=== PATIENT | male | born 1990 | race Hispanic/Latino ===

== ENCOUNTER 2022-03-16 17:40 | Inpatient (IN) | payer SELFPAY ==
[2022-03-16] MEDS ORDERED: FAMOTIDINE 20 MG/2 ML INJ IV ONE (20:58)
[2022-03-16] MEDS ORDERED: ONDANSETRON 4 MG/2 ML INJ IV ONE (20:58)
[2022-03-16] MEDS ORDERED: MORPHINE 4 MG/1 ML INJ IV ONE (20:58)
[2022-03-16] MEDS ORDERED: dexAMETHasone 20 MG/5 ML VIAL IV ONE (20:58)
[2022-03-16] MEDS ORDERED: SODIUM CHLORIDE 0.9% 1000 ML 1,000 ML IV ONE (20:59)
[2022-03-16 21:35] LABS: Basophils % (Auto) 0.3 % (0.0-1.8); Eosinophils # (Auto) 0.3 K/mm3 (0.0-0.4); Eosinophils % (Auto) 3.7 % (0.0-4.3); Hematocrit 40.7 % (35.5-45.6); Lymphocytes # (Auto) 1.5 K/mm3 (1.2-5.4); Lymphocytes % (Auto) 21.3 % (13.4-35.0); Mean Corpuscular HGB Conc 35 % (32-34); Mean Corpuscular Volume 81 fl (84-94); Monocytes # (Auto) 0.8 K/mm3 (0.0-0.8); Monocytes % (Auto) 10.9 % (0.0-7.3); Platelet Count 290 K/mm3 (140-440); Red Blood Count 5.01 M/mm3 (3.65-5.03); Red Cell Distribution Width 14.4 % (13.2-15.2)
[2022-03-16 21:40] LABS: Alanine Aminotransferase 31 units/L (7-56); Albumin 4.1 g/dL (3.9-5); BUN/Creatinine Ratio 7; Blood Urea Nitrogen 6 mg/dL (9-20); Calcium 8.6 mg/dL (8.4-10.2); Hemolysis Index 9
--- NOTE | 2022-03-16 21:42 | Emergency Department Report ---
ED General Adult HPI - General Chief complaint: Nausea/Vomiting/Diarrhea Stated complaint: CROHN'S DISEASE Time Seen by Provider: 03/16/22 21:29 Source: patient Mode of arrival: Ambulatory Limitations: No Limitations - History of Present Illness Initial comments: Patient presents with complaints of diarrhea x 3 days (multiple bouts) that is diffusely bloody and with mucus. Endorses nausea, but denies vomiting. . Denies recent travel, known sick contacts, antibiotics, eating out or any unusual or reheated foods. Endorses L sided abdominal pain, sharp/cramping, non radiating, 7/10, not worsened or relieved by anything. Has a hx of Crohn's disease. - Related Data Home Medications Medication Instructions Recorded Confirmed Last Taken No Known Home Medications [No 03/17/22 03/17/22 Unknown Reported Home Medications] Allergies Allergy/AdvReac Type Severity Reaction Status Date / Time No Known Allergies Allergy Verified 03/16/22 17:50 ED Review of Systems ROS: Stated complaint: CROHN'S DISEASE Other details as noted in HPI Comment: All other systems reviewed and negative Constitutional: denies: chills, fever ED Past Medical Hx - Past Medical History Hx Hypertension: Yes Additional medical history: chrons, autism - Medications Home Medications: Home Medications Medication Instructions Recorded Confirmed Last Taken Type No Known Home Medications [No 03/17/22 03/17/22 Unknown History Reported Home Medications] ED Physical Exam - General Limitations: No Limitations General appearance: alert, in no apparent distress - Head Head exam: Present: atraumatic, normocephalic - Eye Eye exam: Present: PERRL, EOMI - ENT ENT exam: Present: mucous membranes moist, other (airway patent) - Neck Neck exam: Present: other (supple; no JVD) - Respiratory Respiratory exam: Present: other (good air entry, nml I:E, CTAB, no use of MEHUL) - Cardiovascular Cardiovascular Exam: Present: regular rate, normal rhythm. Absent: rubs, gallop - GI/Abdominal GI/Abdominal exam: Present: soft, other (tender to palpation in L flank and LLQ; no rebound tenderness or involuntary guarding). Absent: distended - Rectal Rectal exam: Present: other (patient refused. Wants to poop in a container for us to get the sample from there; stool in container grossly bloody; sample collected and sent to lab) - Extremities Exam Extremities exam: Present: full ROM. Absent: tenderness - Back Exam Back exam: Present: full ROM. Absent: CVA tenderness (R), CVA tenderness (L) - Neurological Exam Neurological exam: Present: alert, oriented X3, CN II-XII intact. Absent: motor sensory deficit - Skin Skin exam: Present: warm, normal color ED Course Vital Signs 03/16/22 03/16/22 03/17/22 17:45 21:55 03:07 Temperature 97.3 F L Pulse Rate 103 H Respiratory 18 20 18 Rate Blood Pressure 215/148 Blood Pressure [Right] O2 Sat by Pulse 98 Oximetry 03/17/22 03/17/22 03/17/22 03:37 04:26 04:47 Temperature 97.3 F L 97.5 F L Pulse Rate 103 H 104 H Respiratory 20 18 22 Rate Blood Pressure 180/109 Blood Pressure 159/95 [Right] O2 Sat by Pulse 98 94 Oximetry ED Medical Decision Making - Lab Data Result diagrams: 03/16/22 21:03 03/16/22 21:03 Laboratory Tests 03/16/22 03/16/22 03/16/22 21:03 21:03 23:16 WBC 6.9 RBC 5.01 Hgb 14.0 Hct 40.7 MCV 81 L MCH 28 MCHC 35 H RDW 14.4 Plt Count 290 Lymph % (Auto) 21.3 [place] % (Auto) 10.9 H Eos % (Auto) 3.7 Baso % (Auto) 0.3 Lymph # (Auto) 1.5 [place] # (Auto) 0.8 Eos # (Auto) 0.3 Baso # (Auto) 0.0 Seg Neutrophils % 63.8 Seg Neutrophils # 4.4 Sodium 141 Potassium 3.3 L Chloride 103.3 Carbon Dioxide 26 Anion Gap 15 BUN 6 L Creatinine 0.9 Estimated GFR > 60 BUN/Creatinine Ratio 7 Glucose 98 Calcium 8.6 Total Bilirubin 0.40 AST 16 ALT 31 Alkaline Phosphatase 75 Total Protein 6.6 Albumin 4.1 Albumin/Globulin Ratio 1.6 Lipase 25 Urine Color Straw Urine Turbidity Clear Urine pH 6.0 Ur Specific [place] 1.057 H Urine Protein <15 mg/dl Urine Glucose (UA) Neg Urine Ketones Neg Urine Blood Neg Urine Nitrite Neg Urine Bilirubin Neg Urine Urobilinogen < 2.0 Ur Leukocyte Esterase Neg Urine WBC (Auto) < 1.0 Urine RBC (Auto) < 1.0 U Epithel Cells (Auto) < 1.0 CT abd/pelvis: no acute intra-abdominal abnormality - Medical Decision Making diff dz: likely 2/2 IBD flare. Thrombocytopenia ruled out. Hemodynamically and hematologically stable. Received NS 1L bolus, morphine 4 mg IV x 1, zofran 4 mg IV x 1, solumedrol 125 mg IV x 1, levaquin 750 mg IV x 1, metronidazole 500 mg IV x 1. Critical care attestation.: If time is entered above; I have spent that time in minutes in the direct care of this critically ill patient, excluding procedure time. ED Disposition Clinical Impression: Hematochezia Disposition: ADMITTED INPATIENT Is pt being admited?: Yes Does the pt Need Aspirin: No Condition: Stable Time of Disposition: 23:55 (Patient admitted to Dr. Baker. Sign out was given bby me to the accepting physician)
--- NOTE | 2022-03-16 22:50 | Cat Scan Report ---
CT ABDOMEN AND PELVIS WITH CONTRAST INDICATION / CLINICAL INFORMATION: abdominal pain, hematochezia. TECHNIQUE: Axial CT images were obtained through the abdomen and pelvis after IV contrast. All CT sc ans at this location are performed using CT dose reduction for ALARA by means of automated exposure c ontrol. COMPARISON: None available. FINDINGS: LOWER CHEST: No significant abnormality. LIVER: No significant abnormality. GALLBLADDER: No significant abnormality. PANCREAS: No significant abnormality. SPLEEN: No significant abnormality. ADRENALS: No significant abnormality. RIGHT KIDNEY / URETER: No significant abnormality. LEFT KIDNEY / URETER: No significant abnormality. STOMACH / SMALL BOWEL: No significant abnormality. COLON: No significant abnormality. APPENDIX: No significant abnormality. PERITONEUM: No free fluid, free air or organized collection. LYMPH NODES: No significant adenopathy. AORTA / ARTERIES/ VEINS: No significant abnormality. URINARY BLADDER: No significant abnormality. REPRODUCTIVE ORGANS: No significant abnormality. ADDITIONAL FINDINGS: None. SKELETAL SYSTEM: No significant abnormality. IMPRESSION: 1. No acute abnormality. Signer Name: Nirmal Lobo MD Signed: 03/16/2022 10:45 PM Workstation Name: [id number]
[2022-03-16 23:32] LABS: Bilirubin,Urine NEG (Negative); Blood,Urine NEG (Negative); Color,Urine Straw (Yellow); Protein,Urine <15 mg/dL mg/dL (Negative); Urobilinogen,Urine < 2.0 mg/dL (<2.0); WBC,Urine < 1.0 /HPF (0.0-6.0)
[2022-03-16] MEDS ORDERED: metroNIDAZOLE/NS 500 MG/100 ML 500 MG/100 ML BAG IV ONE (23:45)
[2022-03-16 23:46] LABS: RBC,Urine < 1.0 /HPF (0.0-6.0)
[2022-03-16] MEDS ORDERED: methylPREDNISolone Sod Succinate 125 MG/2 ML INJ IV ONE (23:57)
[2022-03-17] MEDS ORDERED: ACETAMINOPHEN 325 MG TAB PO PRN (01:23)
[2022-03-17] MEDS ORDERED: ALBUTEROL 2.5 MG/3 ML NEBU IH PRN (01:23)
--- NOTE | 2022-03-17 01:29 | History and Physical Report ---
History of Present Illness Date of examination: 03/17/22 Date of admission: 03/17/22 Chief complaint: Nausea vomiting diarrhea Hematochezia History of present illness: 31 years male with history of IBD, Crohn's disease was brought to the emergency room with complaints of diarrhea x 3 days (multiple bouts) that is diffusely bloody and with mucus. Endorses nausea, but denies vomiting. . Denies recent travel, known sick contacts, antibiotics, eating out or any unusual or reheated foods. Endorses L sided abdominal pain, sharp/cramping, non radiating, 7/10, not worsened or relieved by anything. In the emergency room initial CT scan of the abdomen shows no acute abnormality, so we are going to admit the patient we will put the patient on IV fluid Protonix we will consult GI for evaluation Past History Past Medical History: hypertension, other (chrons, autism) Past Surgical History: No surgical history Social history: no significant social history Family history: no significant family history Medications and Allergies Allergies Allergy/AdvReac Type Severity Reaction Status Date / Time No Known Allergies Allergy Verified 03/16/22 17:50 Active Meds: Active Medications Acetaminophen (Acetaminophen 325 Mg Tab) 650 mg PO Q4H PRN PRN Reason: Pain MILD(1-3)/Fever >100.5/PERKINS Albuterol (Albuterol 2.5 Mg/3 Ml Nebu) 2.5 mg IH Q3HRT PRN PRN Reason: Shortness Of Breath Albuterol/Ipratropium (Ipratropium/Albuterol Sulfate 3 Ml Ampul.Neb) 1 ampul IH Q6HRT DEVEN Levofloxacin/Dextrose (Levaquin 750mg/150ml) 750 mg in 150 mls @ 100 mls/hr IV ONCE ONE; Protocol Stop: 03/17/22 01:26 Dextrose/Sodium Chloride (D5/0.45ns) 1,000 mls @ 100 mls/hr IV DIRECT DEVEN Ondansetron HCl (Ondansetron 4 Mg/2 Ml Inj) 4 mg IV Q8H PRN PRN Reason: Nausea And Vomiting Sodium Chloride (Sodium Chloride 0.9% 10 Ml Flush Syringe) 10 ml IV BID DEVEN Sodium Chloride (Sodium Chloride 0.9% 10 Ml Flush Syringe) 10 ml IV PRN PRN PRN Reason: LINE FLUSH Review of Systems All systems: negative Gastrointestinal: abdominal pain, nausea, vomiting, diarrhea, hematochezia Exam - Constitutional Vitals: Temp Pulse Resp BP Pulse Ox 97.3 F L 103 H 20 215/148 98 03/16/22 17:45 03/16/22 17:45 03/16/22 21:55 03/16/22 17:45 03/16/22 17:45 General appearance: Present: no acute distress, well-nourished - EENT Eyes: Present: PERRL ENT: hearing intact, clear oral mucosa - Neck Neck: Present: supple, normal ROM - Respiratory Respiratory effort: normal Respiratory: bilateral: diminished - Cardiovascular Heart Sounds: Present: S1 & S2. Absent: rub, click - Extremities Extremities: pulses symmetrical, No edema Peripheral Pulses: within normal limits - Abdominal General gastrointestinal: Present: soft, non-tender, non-distended, normal bowel sounds Male genitourinary: Present: normal - Integumentary Integumentary: Present: clear, warm, dry - Musculoskeletal Musculoskeletal: gait normal, strength equal bilaterally - Psychiatric Psychiatric: appropriate mood/affect, intact judgment & insight - Neurologic Neurologic: CNII-XII intact, moves all extremities Results - Labs CBC & Chem 7: 03/16/22 21:03 03/16/22 21:03 Labs: Laboratory Last Values WBC 6.9 K/mm3 (4.5-11.0) 03/16/22 21:03 RBC 5.01 M/mm3 (3.65-5.03) 03/16/22 21:03 Hgb 14.0 gm/dl (11.8-15.2) 03/16/22 21:03 Hct 40.7 % (35.5-45.6) 03/16/22 21:03 MCV 81 fl (84-94) L 03/16/22 21:03 MCH 28 pg (28-32) 03/16/22 21:03 MCHC 35 % (32-34) H 03/16/22 21:03 RDW 14.4 % (13.2-15.2) 03/16/22 21:03 Plt Count 290 K/mm3 (140-440) 03/16/22 21:03 Lymph % (Auto) 21.3 % (13.4-35.0) 03/16/22 21:03 [place] % (Auto) 10.9 % (0.0-7.3) H 03/16/22 21:03 Eos % (Auto) 3.7 % (0.0-4.3) 03/16/22 21:03 Baso % (Auto) 0.3 % (0.0-1.8) 03/16/22 21:03 Lymph # (Auto) 1.5 K/mm3 (1.2-5.4) 03/16/22 21:03 [place] # (Auto) 0.8 K/mm3 (0.0-0.8) 03/16/22 21:03 Eos # (Auto) 0.3 K/mm3 (0.0-0.4) 03/16/22 21:03 Baso # (Auto) 0.0 K/mm3 (0.0-0.1) 03/16/22 21:03 Seg Neutrophils % 63.8 % (40.0-70.0) 03/16/22 21:03 Seg Neutrophils # 4.4 K/mm3 (1.8-7.7) 03/16/22 21:03 Sodium 141 mmol/L (137-145) 03/16/22 21:03 Potassium 3.3 mmol/L (3.6-5.0) L 03/16/22 21:03 Chloride 103.3 mmol/L (98-107) 03/16/22 21:03 Carbon Dioxide 26 mmol/L (22-30) 03/16/22 21:03 Anion Gap 15 mmol/L 03/16/22 21:03 BUN 6 mg/dL (9-20) L 03/16/22 21:03 Creatinine 0.9 mg/dL (0.8-1.3) 03/16/22 21:03 Estimated GFR > 60 ml/min 03/16/22 21:03 BUN/Creatinine Ratio 7 % 03/16/22 21:03 Glucose 98 mg/dL (75-100) 03/16/22 21:03 Calcium 8.6 mg/dL (8.4-10.2) 03/16/22 21:03 Total Bilirubin 0.40 mg/dL (0.1-1.2) 03/16/22 21:03 AST 16 units/L (5-40) 03/16/22 21:03 ALT 31 units/L (7-56) 03/16/22 21:03 Alkaline Phosphatase 75 units/L (35-129) 03/16/22 21:03 Total Protein 6.6 g/dL (6.3-8.2) 03/16/22 21:03 Albumin 4.1 g/dL (3.9-5) 03/16/22 21:03 Albumin/Globulin Ratio 1.6 % 03/16/22 21:03 Lipase 25 units/L (13-60) 03/16/22 21:03 Urine Color Straw (Yellow) 03/16/22 23:16 Urine Turbidity Clear (Clear) 03/16/22 23:16 Urine pH 6.0 (5.0-7.0) 03/16/22 23:16 Ur Specific [place] 1.057 (1.003-1.030) H 03/16/22 23:16 Urine Protein <15 mg/dl mg/dL (Negative) 03/16/22 23:16 Urine Glucose (UA) Neg mg/dL (Negative) 03/16/22 23:16 Urine Ketones Neg mg/dL (Negative) 03/16/22 23:16 Urine Blood Neg (Negative) 03/16/22 23:16 Urine Nitrite Neg (Negative) 03/16/22 23:16 Urine Bilirubin Neg (Negative) 03/16/22 23:16 Urine Urobilinogen < 2.0 mg/dL (<2.0) 03/16/22 23:16 Ur Leukocyte Esterase Neg (Negative) 03/16/22 23:16 Urine WBC (Auto) < 1.0 /HPF (0.0-6.0) 03/16/22 23:16 Urine RBC (Auto) < 1.0 /HPF (0.0-6.0) 03/16/22 23:16 U Epithel Cells (Auto) < 1.0 /HPF (0-13.0) 03/16/22 23:16 - Imaging and Cardiology CT scan - abdomen: report reviewed Assessment and Plan VTE prophylaxis?: Mechanical Plan of care discussed with patient/family: Yes - Patient Problems (1) Hematochezia Status: Acute Plan to address problem: Admit the patient to the medical floor. NPO. D5 half-normal saline at the rate of 100 cc/h. Protonix 40 mg IV every 12 hours. Reconsult GI for evaluation. Recheck CBC in the morning (2) Nausea & vomiting Status: Acute Plan to address problem: NPO. D5 half-normal saline at the rate of 100 cc/h. Protonix 40 mg IV every 12 hours. Zofran 4 mg IV every 6 hours as needed (3) Abdominal pain Status: Acute Plan to address problem: NPO. D5 half-normal saline at the rate of 100 cc/h. Protonix 40 mg IV every 12 hours. Morphine 2 mg IV every 4 hours as needed. reconsult GI for evaluation. Recheck CBC in the morning (4) Crohn's disease Status: Acute Plan to address problem: NPO. D5 half-normal saline at the rate of 100 cc/h. Protonix 40 mg IV every 12 hours. Reconsult GI for evaluation. Recheck CBC in the morning (5) DVT prophylaxis Status: Acute Plan to address problem: SCD for DVT prophylaxis. Protonix 40 mg IV every 12 hours for GI prophylaxis. Patient is a full code
[2022-03-17] MEDS: MORPHINE 2 MG/1 ML INJ IV PRN ×3 (03:07→19:28)
[2022-03-17] MEDS: IPRATROPIUM/ALBUTEROL SULFATE 3 ML AMPUL.NEB IH SCH ×4 (04:00→20:19)
[2022-03-17] MEDS: D5W/0.45% NACL 1,000 ML IV SCH ×2 (04:56→17:42)
[2022-03-17] MEDS: HYDROmorphone 1 MG/1 ML INJ IV PRN ×2 (05:22→09:57)
[2022-03-17] MEDS: hydrALAZINE 20 MG/1 ML INJ IV PRN (05:51)
--- NOTE | 2022-03-17 08:09 | Progress Note ---
Assessment and Plan Assessment and plan: 31 years male with history of IBD, Ulcerative colitis was brought to the emergency room with complaints of diarrhea x 3 days (multiple bouts) that is diffusely bloody and with mucus. Endorses nausea, but denies vomiting. . Denies recent travel, known sick contacts, antibiotics, eating out or any unusual or reheated foods. Endorses L sided abdominal pain, sharp/cramping, non radiating, 7/10, not worsened or relieved by anything. Hospital Course: 03/17: D/w patient about his history of IBD. He does not have Crohns, he actually has ulcerative colitis. He was diagnosed in 2007 and his last flare was in 2018. During his last flare he was given prednisone and ascol and improved. He is not currently on maintainence therapy and states that he does not follow with a GI doctor as he recently relocated from [place]. Started patient on mesalamine. Awaiting GI input. Assessment and Plan: #Hematochezia - H/H stable - CT scan of the abdomen shows no acute abnormality - GI consulted #[facility] Flare - initiated on prednisone 40 mg po daily - CT scan of the abdomen shows no acute abnormality - GI consulted #Hypertensive Urgency - labetalol 10 mg IV prn #History of Ulcerative Colitis #Inflammatory bowel disease #Advance care planning Disease education conducted, care plan discussed, diagnoses discussed, prognosis discussed, patient is full code, patient acknowledges understanding and agree with care plan, +30 minutes. History Interval history: Patient resting comfortably on my encounter. He states he is feeling better today. He has not had a bowel movement yet this AM. Hospitalist Physical - Physical exam Narrative exam: Physical Exam: VITAL SIGNS: Reviewed. GENERAL: The patient appears normally developed, Vital signs as documented. HEAD: No signs of head trauma. EYES: Pupils are equal. Extraocular motions intact. EARS: Hearing grossly intact. MOUTH: Oropharynx is normal. NECK: No adenopathy, no JVD. CHEST: Chest with clear breath sounds bilaterally. No wheezes, rales, or rhonchi. CARDIAC: Regular rate and rhythm. S1 and S2, without murmurs, gallops, or rubs. VASCULAR: No Edema. Peripheral pulses normal and equal in all extremities. ABDOMEN: Soft, non tender and non distended. No rebound or guarding, and no masses palpated. Bowel Sounds normal. MUSCULOSKELETAL: Good range of motion of all major joints. Extremities without clubbing, cyanosis or edema. NEUROLOGIC EXAM: Alert and oriented x 4. no focal sensory or strength deficits. PSYCHIATRIC: Mood normal. SKIN: detail exam as documented in skin assessment - Constitutional Vitals: Temp Pulse Resp BP Pulse Ox 97.5 F L 100 H 16 180/109 98 03/17/22 04:47 03/17/22 07:27 03/17/22 07:27 03/17/22 05:51 03/17/22 05:31 General appearance: Present: no acute distress, well-nourished Results - Labs CBC & Chem 7: 03/16/22 21:03 03/16/22 21:03 Labs: Laboratory Last Values WBC 6.9 K/mm3 (4.5-11.0) 03/16/22 21:03 RBC 5.01 M/mm3 (3.65-5.03) 03/16/22 21:03 Hgb 14.0 gm/dl (11.8-15.2) 03/16/22 21:03 Hct 40.7 % (35.5-45.6) 03/16/22 21:03 MCV 81 fl (84-94) L 03/16/22 21:03 MCH 28 pg (28-32) 03/16/22 21:03 MCHC 35 % (32-34) H 03/16/22 21:03 RDW 14.4 % (13.2-15.2) 03/16/22 21:03 Plt Count 290 K/mm3 (140-440) 03/16/22 21:03 Lymph % (Auto) 21.3 % (13.4-35.0) 03/16/22 21:03 [place] % (Auto) 10.9 % (0.0-7.3) H 03/16/22 21:03 Eos % (Auto) 3.7 % (0.0-4.3) 03/16/22 21:03 Baso % (Auto) 0.3 % (0.0-1.8) 03/16/22 21:03 Lymph # (Auto) 1.5 K/mm3 (1.2-5.4) 03/16/22 21:03 [place] # (Auto) 0.8 K/mm3 (0.0-0.8) 03/16/22 21:03 Eos # (Auto) 0.3 K/mm3 (0.0-0.4) 03/16/22 21:03 Baso # (Auto) 0.0 K/mm3 (0.0-0.1) 03/16/22 21:03 Seg Neutrophils % 63.8 % (40.0-70.0) 03/16/22 21:03 Seg Neutrophils # 4.4 K/mm3 (1.8-7.7) 03/16/22 21:03 Sodium 141 mmol/L (137-145) 03/16/22 21:03 Potassium 3.3 mmol/L (3.6-5.0) L 03/16/22 21:03 Chloride 103.3 mmol/L (98-107) 03/16/22 21:03 Carbon Dioxide 26 mmol/L (22-30) 03/16/22 21:03 Anion Gap 15 mmol/L 03/16/22 21:03 BUN 6 mg/dL (9-20) L 03/16/22 21:03 Creatinine 0.9 mg/dL (0.8-1.3) 03/16/22 21:03 Estimated GFR > 60 ml/min 03/16/22 21:03 BUN/Creatinine Ratio 7 % 03/16/22 21:03 Glucose 98 mg/dL (75-100) 03/16/22 21:03 Calcium 8.6 mg/dL (8.4-10.2) 03/16/22 21:03 Total Bilirubin 0.40 mg/dL (0.1-1.2) 03/16/22 21:03 AST 16 units/L (5-40) 03/16/22 21:03 ALT 31 units/L (7-56) 03/16/22 21:03 Alkaline Phosphatase 75 units/L (35-129) 03/16/22 21:03 Total Protein 6.6 g/dL (6.3-8.2) 03/16/22 21:03 Albumin 4.1 g/dL (3.9-5) 03/16/22 21:03 Albumin/Globulin Ratio 1.6 % 03/16/22 21:03 Lipase 25 units/L (13-60) 03/16/22 21:03 Urine Color Straw (Yellow) 03/16/22 23:16 Urine Turbidity Clear (Clear) 03/16/22 23:16 Urine pH 6.0 (5.0-7.0) 03/16/22 23:16 Ur Specific [place] 1.057 (1.003-1.030) H 03/16/22 23:16 Urine Protein <15 mg/dl mg/dL (Negative) 03/16/22 23:16 Urine Glucose (UA) Neg mg/dL (Negative) 03/16/22 23:16 Urine Ketones Neg mg/dL (Negative) 03/16/22 23:16 Urine Blood Neg (Negative) 03/16/22 23:16 Urine Nitrite Neg (Negative) 03/16/22 23:16 Urine Bilirubin Neg (Negative) 03/16/22 23:16 Urine Urobilinogen < 2.0 mg/dL (<2.0) 03/16/22 23:16 Ur Leukocyte Esterase Neg (Negative) 03/16/22 23:16 Urine WBC (Auto) < 1.0 /HPF (0.0-6.0) 03/16/22 23:16 Urine RBC (Auto) < 1.0 /HPF (0.0-6.0) 03/16/22 23:16 U Epithel Cells (Auto) < 1.0 /HPF (0-13.0) 03/16/22 23:16 Microbiology: Microbiology 03/16/22 23:16 Stool Stool Occult Blood (MIGUEL) - Final Estrada/IV: Voiding Method Toilet Active Medications - Current Medications Current Medications: Generic Name Dose Route Start Last Admin Trade Name Freq PRN Reason Stop Dose Admin Acetaminophen 650 mg 03/17/22 01:23 Acetaminophen 325 Mg Tab PO Q4H PRN Pain MILD(1-3)/Fever >100.5/PERKINS Albuterol 2.5 mg 03/17/22 01:23 Albuterol 2.5 Mg/3 Ml Nebu IH Q3HRT PRN Shortness Of Breath Albuterol/Ipratropium 1 ampul 03/17/22 02:00 03/17/22 07:27 Ipratropium/Albuterol Sulfate 3 Ml Ampul.Neb IH 1 ampul Q6HRT DEVEN Administration Hydralazine HCl 10 mg 03/17/22 05:23 03/17/22 05:51 Hydralazine 20 Mg/1 Ml Inj IV 10 mg Q6HR PRN Administration Blood Pressure Hydromorphone HCl 0.5 mg 03/17/22 01:23 03/17/22 05:22 Hydromorphone 1 Mg/1 Ml Inj IV 0.5 mg Q3H PRN Administration Pain , Severe (7-10) Dextrose/Sodium Chloride 1,000 mls @ 100 mls/hr 03/17/22 02:00 03/17/22 04:56 D5/0.45ns IV 100 mls/hr DIRECT DEVEN Administration Morphine Sulfate 2 mg 03/17/22 01:23 03/17/22 03:07 Morphine 2 Mg/1 Ml Inj IV 2 mg Q4H PRN Administration Pain, Moderate (4-6) Ondansetron HCl 4 mg 03/17/22 01:23 Ondansetron 4 Mg/2 Ml Inj IV Q8H PRN Nausea And Vomiting Pantoprazole Sodium 40 mg 03/17/22 10:00 Pantoprazole 40 Mg Inj IV BID DEVEN Sodium Chloride 10 ml 03/17/22 10:00 Sodium Chloride 0.9% 10 Ml Flush Syringe IV BID DEVEN Sodium Chloride 10 ml 03/17/22 01:23 Sodium Chloride 0.9% 10 Ml Flush Syringe IV PRN PRN LINE FLUSH
[2022-03-17] MEDS ORDERED: PANTOPRAZOLE 40 MG INJ IV SCH (10:00)
[2022-03-17] MEDS ORDERED: predniSONE 20 MG TAB PO SCH (10:00)
[2022-03-17] MEDS: ONDANSETRON 4 MG/2 ML INJ IV PRN (13:28)
[2022-03-17] MEDS ORDERED: MESALAMINE 4 GM/60 ML ENEMA PR SCH (14:00)
--- NOTE | 2022-03-17 20:54 | Consultation ---
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 He last had a flare in 2014. He is on no medications for this. He notes that approximately 10 days ago, he ate a shrimp cocktail and subsequently developed diarrhea with up to 5 or 6 bowel movements a day. On day 7, he noted that the diarrhea became blood-tinged. He has had mild nausea and cramping with this. He denies any fevers chills or sweats. Bowel movements usually occur on a twice a day basis. He has had no weight loss. He denies joint aches. Medication reviewed Past History Past Medical History: hypertension, other (Ulcerative colitis, autism, nystagmus) Past Surgical History: No surgical history Social history: no significant social history, , other (Goes back and forth between [place] and [facility]) Family history: no significant family history Medications and Allergies Allergies Allergy/AdvReac Type Severity Reaction Status Date / Time No Known Allergies Allergy Verified 03/16/22 17:50 Home Medications Medication Instructions Recorded Confirmed Last Taken Type No Known Home Medications [No 03/17/22 03/17/22 Unknown History Reported Home Medications] Active Meds: Active Medications Acetaminophen (Acetaminophen 325 Mg Tab) 650 mg PO Q4H PRN PRN Reason: Pain MILD(1-3)/Fever >100.5/PERKINS Albuterol (Albuterol 2.5 Mg/3 Ml Nebu) 2.5 mg IH Q3HRT PRN PRN Reason: Shortness Of Breath Albuterol/Ipratropium (Ipratropium/Albuterol Sulfate 3 Ml Ampul.Neb) 1 ampul IH Q6HRT DEVEN Last Admin: 03/17/22 20:19 Dose: 1 ampul Hydralazine HCl (Hydralazine 20 Mg/1 Ml Inj) 10 mg IV Q6HR PRN PRN Reason: Blood Pressure Last Admin: 03/17/22 05:51 Dose: 10 mg Hydromorphone HCl (Hydromorphone 1 Mg/1 Ml Inj) 0.5 mg IV Q3H PRN PRN Reason: Pain , Severe (7-10) Last Admin: 03/17/22 09:57 Dose: 0.5 mg Dextrose/Sodium Chloride (D5/0.45ns) 1,000 mls @ 100 mls/hr IV DIRECT [facility] Last Admin: 03/17/22 17:42 Dose: 100 mls/hr Labetalol HCl (Labetalol 20 Mg/4 Ml Inj) 10 mg IV Q4HR PRN PRN Reason: sbp> 160 Mesalamine (Mesalamine 4 Gm/60 Ml Enema) 1 gm OK QPM [facility] Last Admin: 03/17/22 13:33 Dose: 1 gm Morphine Sulfate (Morphine 2 Mg/1 Ml Inj) 2 mg IV Q4H PRN PRN Reason: Pain, Moderate (4-6) Last Admin: 03/17/22 13:28 Dose: 2 mg Ondansetron HCl (Ondansetron 4 Mg/2 Ml Inj) 4 mg IV Q8H PRN PRN Reason: Nausea And Vomiting Last Admin: 03/17/22 13:28 Dose: 4 mg Prednisone (Prednisone 20 Mg Tab) 40 mg PO QDAY [facility] Last Admin: 03/17/22 09:19 Dose: 40 mg Sodium Chloride (Sodium Chloride 0.9% 10 Ml Flush Syringe) 10 ml IV BID [facility] Last Admin: 03/17/22 09:20 Dose: 10 ml Sodium Chloride (Sodium Chloride 0.9% 10 Ml Flush Syringe) 10 ml IV PRN PRN PRN Reason: LINE FLUSH Review of Systems All systems: negative (As per HPI) Exam - Constitutional Vitals: Temp Pulse Resp BP Pulse Ox 98.9 F 105 H 18 173/98 96 03/17/22 17:08 03/17/22 20:00 03/17/22 20:00 03/17/22 17:08 03/17/22 20:17 General appearance: Present: no acute distress, obese, other (Has lateral nystagmus while talking) - EENT Eyes: Present: PERRL, EOM intact ENT: hearing intact - Respiratory Respiratory effort: normal Respiratory: bilateral: CTA (Anterior) - Cardiovascular Rhythm: regular Heart Sounds: Present: S1 & S2 - Abdominal General gastrointestinal: Present: soft, non-tender Results - Labs CBC & Chem 7: 03/16/22 21:03 03/16/22 21:03 Labs: Abnormal lab results 03/16/22 03/16/22 03/16/22 Range/Units 21:03 21:03 23:16 MCV 81 L (84-94) fl MCHC 35 H (32-34) % Ev[place]eline % (Auto) 10.9 H (0.0-7.3) % Potassium 3.3 L (3.6-5.0) mmol/L BUN 6 L (9-20) mg/dL Ur Specific [place] 1.057 H (1.003-1.030) - Imaging and Cardiology CT scan - abdomen: report reviewed (Normal, including normal colon) Assessment and Plan 1. Bloody diarrheamost consistent with infectious diarrhea. Patient is feeling remarkably better at present after having gotten fluids and antibiotics and some steroids. I doubt that this is a flare of his ulcerative colitis. I suspect it is more of an infectious diarrhea point, possibly related to the shrimp. Continue antibiotics and stop steroids Advance diet If does well, may discharge to home Follow-up on stool Should follow-up with GI on an outpatient basis to verify the diagnosis of ulcerative colitis by examining records, and probably undergoing a colonoscopy at some point when he is doing well.
[2022-03-18] MEDS: hydrALAZINE 20 MG/1 ML INJ IV PRN ×2 (00:14→05:46)
[2022-03-18] MEDS: MORPHINE 2 MG/1 ML INJ IV PRN ×2 (01:55→13:56)
[2022-03-18] MEDS: ONDANSETRON 4 MG/2 ML INJ IV PRN (01:55)
[2022-03-18] MEDS: D5W/0.45% NACL 1,000 ML IV SCH (01:59)
[2022-03-18] MEDS: IPRATROPIUM/ALBUTEROL SULFATE 3 ML AMPUL.NEB IH SCH (03:01)
[2022-03-18 07:59] LABS: Basophils % (Auto) 0.2 % (0.0-1.8); Eosinophils % (Auto) 0.2 % (0.0-4.3); Hematocrit 45.2 % (35.5-45.6); Hemoglobin 15.2 gm/dl (11.8-15.2); Lymphocytes # (Auto) 1.9 K/mm3 (1.2-5.4); Lymphocytes % (Auto) 20.9 % (13.4-35.0); Mean Corpuscular HGB Conc 34 % (32-34); Mean Corpuscular Volume 82 fl (84-94); Monocytes % (Auto) 10.8 % (0.0-7.3); Platelet Count 354 K/mm3 (140-440); Red Blood Count 5.51 M/mm3 (3.65-5.03); Red Cell Distribution Width 15.1 % (13.2-15.2)
[2022-03-18 08:05] LABS: Alanine Aminotransferase 30 units/L (7-56); Albumin 4.3 g/dL (3.9-5); BUN/Creatinine Ratio 11; Blood Urea Nitrogen 9 mg/dL (9-20); Calcium 9.5 mg/dL (8.4-10.2); Hemolysis Index 8
--- NOTE | 2022-03-18 08:19 | Discharge Summary ---
Providers - Providers Date of Admission: 03/17/22 01:23 Date of discharge: 03/18/22 Attending physician: NESTOR RÍOS MD 03/17/22 00:16 Consult to Physician [CONS] Routine Comment: Dr. Srinivasan spoke with Dr. Ríos @ 0014 Consulting Provider: GHASSAN RÍOS Physician Instructions: Reason For Exam: Hematochezia Primary care physician: ARABELLA MAGUIRE Hospitalization Reason for admission: abdominal pain, hematochezia Condition: Stable Hospital course: 31 years male with history of IBD, Ulcerative colitis was brought to the emergency room with complaints of diarrhea x 3 days (multiple bouts) that is diffusely bloody and with mucus. Endorses nausea, but denies vomiting. . Denies recent travel, known sick contacts, antibiotics, eating out or any unusual or reheated foods. Endorses L sided abdominal pain, sharp/cramping, non radiating, 7/10, not worsened or relieved by anything. Hospital Course: 03/17: D/w patient about his history of IBD. He does not have Crohns, he actually has ulcerative colitis. He was diagnosed in 2007 and his last flare was in 2018. During his last flare he was given prednisone and ascol and improved. He is not currently on maintainence therapy and states that he does not follow with a GI doctor as he recently relocated from [place]. Started patient on mesalamine. Awaiting GI input. 03/18: Discharge home today. will d/c home with flaygl, prednisone, mesalamine rx. Meds transmitted to pharmacy. Advised to establish with OP GI. Assessment and Plan: #Hematochezia - H/H stable - CT scan of the abdomen shows no acute abnormality - GI consulted #UC Flare vs Infectious colitis - initiated on prednisone 40 mg po daily - CT scan of the abdomen shows no acute abnormality - GI consulted #Hypertensive Urgency - labetalol 10 mg IV prn #History of Ulcerative Colitis #Inflammatory bowel disease #Advance care planning Disease education conducted, care plan discussed, diagnoses discussed, prognosis discussed, patient is full code, patient acknowledges understanding and agree with care plan, +30 minutes. Disposition: HOME / SELF CARE / HOMELESS Final Discharge Diagnosis (Prints w/discharge instructions): Inflammatory bowel disease, infectious colitis Time spent for discharge: 35 Core Measure Documentation - Palliative Care Palliative Care/ Comfort Measures: Not Applicable - Core Measures Any of the following diagnoses?: none Exam - Physical Exam Narrative exam: Physical Exam: VITAL SIGNS: Reviewed. GENERAL: The patient appears normally developed, Vital signs as documented. HEAD: No signs of head trauma. EYES: Pupils are equal. Extraocular motions intact. EARS: Hearing grossly intact. MOUTH: Oropharynx is normal. NECK: No adenopathy, no JVD. CHEST: Chest with clear breath sounds bilaterally. No wheezes, rales, or rhonchi. CARDIAC: Regular rate and rhythm. S1 and S2, without murmurs, gallops, or rubs. VASCULAR: No Edema. Peripheral pulses normal and equal in all extremities. ABDOMEN: Soft, non tender and non distended. No rebound or guarding, and no masses palpated. Bowel Sounds normal. MUSCULOSKELETAL: Good range of motion of all major joints. Extremities without clubbing, cyanosis or edema. NEUROLOGIC EXAM: Alert and oriented x 4. no focal sensory or strength deficits. PSYCHIATRIC: Mood normal. SKIN: detail exam as documented in skin assessment - Constitutional Vitals: Temp Pulse Resp BP Pulse Ox 98.8 F 98 H 22 193/121 97 03/18/22 05:31 03/18/22 05:31 03/18/22 05:31 03/18/22 05:46 03/18/22 05:31 Plan Follow up with: ARABELLA MAGUIRE MD [Primary Care Provider] - 7 Days SILVIA GUTIERRES MD [Staff Physician] - 7 Days Prescriptions: predniSONE [Deltasone] 20 mg PO QDAY 3 Days #3 tab Mesalamine [Delzicol] 400 mg PO TID 30 Days #90 cap metroNIDAZOLE [Flagyl] 500 mg PO Q8HR 7 Days #21 tablet
[2022-03-18 14:52] VITALS: BP 153/99
== END 2022-03-18 15:10 | disposition home or self-care (01) | DRG 378 ==
LOC: EDBD → ED 17:40 → 3A 03-17 01:23
PROVIDERS: ADMIT Hospitalist; ATTEND Internal Medicine
DX: K92.1 Melena (principal); A09 Infectious gastroenteritis and colitis, unspecified; K50.90 Crohn's disease, unspecified, without complications; I16.0 Hypertensive urgency; I10 Essential (primary) hypertension; R19.7 Diarrhea, unspecified
CPT/HCPCS: 36415; 74177; 80053; 81001; 82270; 83690; 85025; 94640; G0378; J3490; J7070; J7517; C9113; J0360; J1100; J1170; J1956; J2270; J2405; J2930; J7030; Q9967

== ENCOUNTER 2022-04-22 11:39 | Emergency (ER) | payer SELFPAY ==
[2022-04-22 13:21] LABS: Basophils # (Auto) 0.1 K/mm3 (0.0-0.1); Basophils % (Auto) 0.6 % (0.0-1.8); Eosinophils # (Auto) 0.6 K/mm3 (0.0-0.4); Eosinophils % (Auto) 5.8 % (0.0-4.3); Hematocrit 44.3 % (35.5-45.6); Hemoglobin 15.3 gm/dl (11.8-15.2); Lymphocytes # (Auto) 2.5 K/mm3 (1.2-5.4); Lymphocytes % (Auto) 26.6 % (13.4-35.0); Mean Corpuscular HGB Conc 35 % (32-34); Mean Corpuscular Volume 81 fl (84-94); Monocytes # (Auto) 1.1 K/mm3 (0.0-0.8); Monocytes % (Auto) 11.2 % (0.0-7.3); Platelet Count 342 K/mm3 (140-440); Red Blood Count 5.45 M/mm3 (3.65-5.03); Red Cell Distribution Width 14.7 % (13.2-15.2)
[2022-04-22 14:30] LABS: BUN/Creatinine Ratio 8; Blood Urea Nitrogen 7 mg/dL (9-20); Calcium 9.2 mg/dL (8.4-10.2); Hemolysis Index 10
[2022-04-22] MEDS ORDERED: methylPREDNISolone Sod Suc 125 MG in SODIUM CHLORIDE 0.9% 100 ML IV ONE (17:44)
[2022-04-22] MEDS ORDERED: PIPERACILLIN/TAZOBACTAM 3.375 3.375 GM/50 ML BAG IV ONE (17:45)
[2022-04-22] MEDS ORDERED: SODIUM CHLORIDE 0.9% 1000 ML 1,000 ML IV ONE (17:46)
--- NOTE | 2022-04-22 17:49 | Emergency Department Report ---
HPI - General Chief Complaint: Abdominal Pain PUI?: No Time Seen by Provider: 04/22/22 17:37 - HPI HPI: 3-day history of diffuse abdominal pain worse in his right lower quadrant. He has not had any operations. He does have a history of ulcerative colitis and had not had an attack until last month when he had 8:01 years of being symptom- free. Reports that over the last 3 days he has had some diffuse moderate abdominal pain worse with sharp exacerbations in the right lower quadrant. Movement makes it worse. He has been associated with nausea but no vomiting and episodes of watery diarrhea with some mixed blood in it. Vomiting fever chills or any other associated symptoms. Nothing makes the pain better and movement m akes the pain worse. ED Past Medical Hx - Past Medical History Hx Hypertension: Yes Hx Congestive Heart Failure: No Hx Diabetes: No Hx Asthma: No Hx COPD: No Hx HIV: No Additional medical history: chrons, autism - Surgical History Past Surgical History?: No - Family History Family history: no significant - Social History Smoking Status: Former Smoker Substance Use Type: None - Medications Home Medications: Home Medications Medication Instructions Recorded Confirmed Last Taken Type Mesalamine [Delzicol] 400 mg PO TID 30 Days #90 cap 03/18/22 Unknown Rx amLODIPine 10 mg PO DAILY 30 Days #30 tab 03/18/22 Unknown Rx lisinopriL [Zestril TAB] 40 mg PO QDAY 30 Days #30 tab 03/18/22 Unknown Rx metroNIDAZOLE [Flagyl] 500 mg PO Q8HR 7 Days #21 tablet 03/18/22 Unknown Rx predniSONE [Deltasone] 20 mg PO QDAY 3 Days #3 tab 03/18/22 Unknown Rx Ciprofloxacin HCl [Ciprofloxacin 750 mg PO BID 10 Days #20 tab 04/22/22 Unknown Rx TAB] HYDROcodone/APAP 5-325 [[place] 2 each PO Q6HR PRN 3 Days #24 04/22/22 Unknown Rx 5/325] tablet Mesalamine [Pentasa] 1,000 mg PO QID 10 Days #80 tab 04/22/22 Unknown Rx Ondansetron [Zofran Odt] 4 mg PO Q6H PRN 3 Days #12 04/22/22 Unknown Rx tab.rapdis predniSONE [Deltasone] 50 mg PO QDAY 7 Days #7 tab 04/22/22 Unknown Rx ED Review of Systems ROS: Stated complaint: ABD PAIN Other details as noted in HPI Other: All systems reviewed and negative Physical Exam - Physical Exam Vital Signs: Vital Signs 04/22/22 11:43 Temperature 98 F Pulse Rate 115 H Respiratory 18 Rate Blood Pressure 199/118 [Left] O2 Sat by Pulse 99 Oximetry Physical Exam: Physical Exam: Constitutional: AAOX3. No acute distress. No diaphoresis. HENT: Normocephalic. Pupils equal and reactive. No throat edema or erythema. Neck: No neck rigidity or tenderness. Cardiovascular: Heart sounds: No murmur. Normal rate and regular rhythm. Pulses: Intact distal pulses. Lungs: No wheezing or rales. Chest wall: No tenderness. Abdominal: No distension. No mass/pulsatile mass. There is moderate tenderness palpation diffusely but especially over the right lower quadrant without any guarding or rebound. Musculoskeletal: Normal range of motion. No edema, No calf TTP. Skin: Warm and dry. Neurological: Alert and oriented to person, place, and time. Psychiatric: Mood and affect normal. Normal cognition and memory. Normal judgement. ED Course Vital Signs 04/22/22 11:43 Temperature 98 F Pulse Rate 115 H Respiratory 18 Rate Blood Pressure 199/118 [Left] O2 Sat by Pulse 99 Oximetry - Reevaluation(s) Reevaluation #1: 04/22/22 18:51 The patient responded well to the fluids and the meds in the emergency department. He likely has an exacerbation of his ulcerative colitis. I will put him on some oral antibiotics as well as steroids and Asacol and some pain medicine he will follow-up with his PCP as soon as possible return if any other issues arise. ED Medical Decision Making - Lab Data Result diagrams: 04/22/22 12:19 04/22/22 12:19 Critical care attestation.: If time is entered above; I have spent that time in minutes in the direct care o f this critically ill patient, excluding procedure time. ED Disposition Clinical Impression: Ulcerative colitis with rectal bleeding Disposition: HOME / SELF CARE / HOMELESS Is pt being admited?: No Does the pt Need Aspirin: No Condition: Stable Instructions: Ulcerative Colitis, Adult Prescriptions: Ciprofloxacin HCl [Ciprofloxacin TAB] 750 mg PO BID 10 Days #20 tab predniSONE [Deltasone] 50 mg PO QDAY 7 Days #7 tab HYDROcodone/APAP 5-325 [[place] 5/325] 2 each PO Q6HR PRN 3 Days #24 tablet PRN Reason: Pain Mesalamine [Pentasa] 1,000 mg PO QID 10 Days #80 tab Ondansetron [Zofran Odt] 4 mg PO Q6H PRN 3 Days #12 tab.rapdis PRN Reason: Nausea And Vomiting Time of Disposition: 18:50 Print Language: MALIAN
[2022-04-22 17:53] LABS: Bacteria,Urine 1+ /HPF (Negative); Bilirubin,Urine NEG (Negative); Blood,Urine NEG (Negative); Color,Urine Amber (Yellow); Hyaline Casts,Urine 3 /LPF; Mucus,Urine 3+ /HPF; Protein,Urine <15 mg/dL mg/dL (Negative); Urobilinogen,Urine < 2.0 mg/dL (<2.0)
--- NOTE | 2022-04-22 18:31 | Cat Scan Report ---
CT ABDOMEN AND PELVIS WITH CONTRAST HISTORY: RLQ abd pain (IV Contrast only) 60 ml omni 300 COMPARISON: 03/16/2022 TECHNIQUE: Routine abdominal and pelvic CT exam performed following intravenous contrast administrat ion.. All CT scans at this location are performed using CT dose reduction for ALARA by means of autom ated exposure control. FINDINGS: CT ABDOMEN: Lung Bases: No significant abnormality. Liver: No significant abnormality. Biliary: No significant abnormality. Spleen: No significant abnormality. Unenlarged. Pancreas: No significant abnormality. Adrenals: No significant abnormality. Kidneys: No significant abnormality. Lymphatics: No lymphadenopathy. Vasculature: No significant abnormality. Bowel/Peritoneum: There is wall thickening and edema in the distal colon suggesting colitis. There is no pneumatosis or free air. There is no obstruction. Normal appendix. CT PELVIC: : No significant abnormality. Lymphatics: No lymphadenopathy. Osseous Structures: No aggressive appearing osseous lesions. Additional Findings: None IMPRESSION: 1. Wall thickening and edema in the distal colon suggesting colitis. No free air or obstruction. 2. Appendix is normal. Signer Name: Santos Robledo MD Signed: 04/22/2022 6:27 PM Workstation Name: [id number]
[2022-04-22 18:53] LABS: Alanine Aminotransferase 26 units/L (7-56); Albumin 3.8 g/dL (3.9-5); BUN/Creatinine Ratio 7; Blood Urea Nitrogen 7 mg/dL (9-20); Calcium 8.6 mg/dL (8.4-10.2); Hemolysis Index 18
[2022-04-22 20:41] VITALS: BP 203/133
== END 2022-04-22 20:40 | disposition home or self-care (01) ==
LOC: ED 11:39
DX: K51.911 Ulcerative colitis, unspecified with rectal bleeding (principal); I10 Essential (primary) hypertension; Z87.891 Personal history of nicotine dependence
CPT/HCPCS: 36415; 74177; 80048; 80053; 81001; 82140; 82150; 83690; 85025; 87040; 87086; 96361; 96365; 96367; 99284; J2543; J2930; J7030; Q9967